=== PATIENT | female | born 1995 | race Caucasian/White ===

== ENCOUNTER 2017-01-06 18:21 | Emergency (ER) | payer OTHER ==
[~2017-01-06] VITALS: Ht 157.5 cm; Wt 57.4 kg
[~2017-01-06 18:21] MED LIST: BCPILLS PO; CETI10TA84 PO; LEVO25TA PO
[2017-01-06 18:42] VITALS: TEMP 36.8; Ht 157.5 cm; Wt 57.4 kg
[2017-01-06] MEDS ORDERED: ACETAMINOPHEN 500 MG TAB PO STA (19:10)
[2017-01-06] MEDS ORDERED: LEVO88TA3 PO (19:42)
--- NOTE | 2017-01-06 19:53 | DIAGNOSTIC IMAGING REPORT ---
RIGHT SHOULDER MIN 2 VIEWS ROUTINE CLINICAL HISTORY: Right shoulder pain following fall. COMPARISON: None FINDINGS: Alignment of the right shoulder is anatomic. No acute fracture is present. IMPRESSION: No acute fracture or dislocation of the right shoulder. Electronically signed by: Thompson Brunson M.D. 01/06/2017 7:52 PM Dictated Date/Time: 01/06/2017 7:51 PM
--- NOTE | 2017-01-06 19:59 | EMERGENCY ROOM VISIT NOTE ---
ED Visit Note First contact with patient: 18:45 CHIEF COMPLAINT: Right shoulder injury this afternoon HISTORY OF PRESENT ILLNESS: Patient is a [id number] 21-year-old white female who presents emergency department for evaluation of right shoulder pain after an injury at an exercise class. She was in a kickboxing class, and was performing an exercise where she would drop to the ground, and perform a pushup- like movement to the side. She states that she did it several times, without problems, then states that when she dropped, she felt a "jarring sensation" in her right shoulder, with immediate onset of sharp pain in the shoulder that radiated down the arm. Pain is been progressively worsening since the injury which happened about an hour ago. She has pain when she tries to move the right arm at all. She applied ice but has not taken any medication for pain. She rates her discomfort an 8/10. She states that her right hand feels a little bit cold, but denies any numbness or tingling. REVIEW OF SYSTEMS: Review of systems as per HPI. All other systems reviewed were negative. At least 6 systems reviewed. PMH: Electronic medical records are reviewed and summarized as above/below. See Problem List. SOCIAL HISTORY: Patient is a college student from [place] who lives locally in an apartment with roommates. Nonsmoker PHYSICAL EXAM: Vital Signs: Reviewed nurse's notes. CONSTITUTIONAL: Patient is a well-appearing 21-year-old white female who is awake and alert and in no acute distress. MUSCULOSKELETAL: Examination of the right shoulder does not demonstrate any obvious deformity. The shoulder is globally tender to palpation. She has pain in the shoulder with any attempts at range of motion, but can be passively internally and externally rotated fully. She is unable to perform any type of strength testing. Elbow is normal to inspection, essentially nontender to palpation, and flexion, extension, pronation and supination are full, but causes shoulder pain. The right upper extremity is neurovascularly intact. EMERGENCY DEPARTMENT COURSE: The patient was given an ice pack and acetaminophen at her request. X-rays of the right shoulder did not demonstrate any obvious bony abnormality. The patient was fitted with an arm sling. Conservative care measures were discussed. She declined prescription analgesia. She was given contact information for orthopedics for follow-up for further care and evaluation. Differential diagnoses entertained included shoulder contusion, shoulder dislocation/subluxation, shoulder sprain, rotator cuff, capsule, labral or tendinous injury, among others. Medication reconciliation: I attest that I have personally reviewed the patient' s current medication list. Blood pressure screening : Patient was found to have normal blood pressure on screening and does not require follow-up. RIGHT SHOULDER MIN 2 VIEWS ROUTINE CLINICAL HISTORY: Right shoulder pain following fall. COMPARISON: None FINDINGS: Alignment of the right shoulder is anatomic. No acute fracture is present. IMPRESSION: No acute fracture or dislocation of the right shoulder. Problem List Medical Problems: (1) Appendicitis Status: Resolved (2) Hypothyroidism, Unspecified Status: Chronic Surgical Problems: (1) S/P laparoscopic appendectomy Status: Resolved Current/Historical Medications Scheduled Control Pills ( Control Pills), 1 TAB PO DAILY Cetirizine (Zyrtec), 10 MG PO DAILY Levothyroxine Sodium (Levothyroxine Sodium), 88 MCG PO DAILY Allergies Coded Allergies: Erythromycin (Verified Allergy, Unknown, ., 01/06/17) Amoxicillin (Verified Adverse Reaction, Unknown, upset stomach, 01/06/17) Levothyroxine (Verified Adverse Reaction, Unknown, Shakiness, 01/06/17) Does take Levothyroxine daily Vital Signs Date Time Temp Pulse Resp B/P (MAP) Pulse Ox O2 Delivery O2 Flow Rate FiO2 01/06/17 20:20 69 18 127/87 97 Room Air 01/06/17 18:42 36.8 82 16 142/91 98 Room Air Medications Administered Medications (Trade) Dose Ordered Sig/Edith Route Start Time Stop Time Status Last Admin Dose Admin Acetaminophen (Tylenol Tab) 1,000 mg NOW STAT PO 01/06/17 19:10 01/06/17 19:20 DC 01/06/17 19:39 1,000 MG Departure Information Impression Primary Impression: Right shoulder injury Referrals No Doctor, Assigned (PCP) Ken Javed M.D. Patient Instructions [facility] Additional Instructions Ibuprofen(Motrin, Advil) may be used for fever or pain. Use 600mg every six hours as needed. Take with food. Avoid using more than 2400mg in a 24 hour period. Do not use 2400mg per day for more than three consecutive days without physician direction. Prolonged inappropriate use can lead to stomach upset or ulcers. This medication can be taken if you need to drive, work, or perform activities which may be dangerous when taking narcotic pain medication. (AND/OR) Acetaminophen(Tylenol) may be used for fever or pain. Use 1000mg every six hours as needed. Avoid using more than 3000mg in a 24 hour period. This medication can be taken if you need to drive, work, or perform activities which may be dangerous when taking narcotic pain medication. Ice compresses for 20 minutes at a time four times daily for 2-3 days. Use the sling as instructed. Remove your arm from the sling 4-6 times a day and move all the joints around to keep them loose. Rest and elevate your injury. Continue current medications. Return to the ER immediately for any numbness, tingling, severe pain, extreme swelling in the extremity or as needed. Call [facility] tomorrow to arrange follow up for your injury. Problem Qualifiers Primary Impression: Right shoulder injury Encounter type: initial encounter Qualified Codes: S49.91XA - Unspecified injury of right shoulder and upper arm, initial encounter
[2017-01-06 20:20] VITALS: BP 127/87; PULSE 69; O2SAT 97
== END 2017-01-06 20:21 | disposition home or self-care (01) ==
LOC: C.EDB 18:22 → C.EDD 20:21
DX: S49.91XA Unspecified injury of right shoulder and upper arm, initial encounter (principal); X50.9XXA Other and unspecified overexertion or strenuous movements or postures, initial encounter; E03.9 Hypothyroidism, unspecified